=== PATIENT | male | born 1955 | race Caucasian/White ===

== ENCOUNTER 2024-10-10 07:43 | Outpatient (CLI) | payer BC, MEDICARE ==
[2024-10-10] MEDS ORDERED: Iopamidol 300 61% 100 ML VIAL FS ONE (12:18)
== END 2024-10-10 07:44 | disposition home or self-care (01) ==
LOC: CSHULT 07:43
PROVIDERS: ATTEND Internal Medicine Gastroenterology
DX: Z12.2 Encounter for screening for malignant neoplasm of respiratory organs (principal); F17.200 Nicotine dependence, unspecified, uncomplicated; D12.6 Benign neoplasm of colon, unspecified; R13.19 Other dysphagia; R10.13 Epigastric pain; K44.9 Diaphragmatic hernia without obstruction or gangrene; I25.10 Atherosclerotic heart disease of native coronary artery without angina pectoris; I25.84 Coronary atherosclerosis due to calcified coronary lesion; M85.9 Disorder of bone density and structure, unspecified; K82.4 Cholesterolosis of gallbladder; K76.0 Fatty (change of) liver, not elsewhere classified
CPT/HCPCS: 36415; 71260; 76700; 82565; Q9967